=== PATIENT | female | born 1985 | race Caucasian/White ===

== ENCOUNTER 2020-11-03 16:26 | Emergency (ER) | payer OTHER ==
[2020-11-03 19:00] LABS: HEMOGLOBIN 13.8 gm/dl (12.3-15.3); RED BLOOD COUNT 4.44 M/UL (4.00-5.10); WHITE BLOOD COUNT 15.2 K/UL (4.5-11.0)
[2020-11-03 19:10] LABS: BUN/CREATININE RATIO 17 (0-10)
[2020-11-03] MEDS ORDERED: CEFUROXIME500 MG PO (21:58)
[2020-11-03] MEDS ORDERED: ONDANSETRON ODT4 MG SL (21:58)
[2020-11-03] MEDS ORDERED: NAPROSYN500 MG PO (21:58)
== END 2020-11-03 22:20 | disposition home or self-care (01) ==
LOC: ER1 16:26
PROVIDERS: Physician Assistant Medical
DX: N83.201 Unspecified ovarian cyst, right side (principal); N39.0 Urinary tract infection, site not specified; F17.210 Nicotine dependence, cigarettes, uncomplicated; Z79.899 Other long term (current) drug therapy
CPT/HCPCS: 80053; 81001; 84703; 85025; 85652; 86140; 96374; 99284; J1885; J7030; Q9967